=== PATIENT | female | born 1945 | race Caucasian/White ===

== ENCOUNTER → 2017-10-19 | Outpatient (CLI) | payer BC ==
[~2017-10-19] MED LIST: AMLO5TAB2 PO; ASPI1TAB57 PO; HYDR-3583 PO; HYDR12.57 PO; LISI-515 PO; MELO15TA20 PO; ROSU1TAB8 PO; WALKER/ADULT/FO1 MIS
== END ==
LOC: CPRE 11:46
PROVIDERS: ATTEND Orthopaedic Surgery Orthopaedic Trauma
DX: Z01.810 Encounter for preprocedural cardiovascular examination (principal)

== ENCOUNTER 2017-10-25 05:15 | Inpatient (IN) | payer BC, MEDICARE ==
[~2017-10-25] VITALS: Ht 165.1 cm; Wt 77.2 kg
[~2017-10-25 05:15] MED LIST changes: -HYDR-3583 PO; -WALKER/ADULT/FO1 MIS
[2017-10-25] MEDS ORDERED: LACTATED RINGER'S 1000 ML IV PRN (05:45)
[2017-10-25] MEDS ORDERED: DEXAMETHASONE SOD PHOS 20 MG/5 ML VIAL IV SCH (05:45)
[2017-10-25] MEDS ORDERED: CHLORHEXIDINE GLUCONATE 2 % 1 PACK (2 CLOTHS) TOPICAL PRN (05:45)
[2017-10-25] MEDS ORDERED: VANCOMYCIN 1000 MG/NS 250 ML (for <70 kg) IV SCH ×2 (05:45)
[2017-10-25] MEDS ORDERED: ceFAZolin 2 GM PREMIX 50 ML IV SCH ×2 (05:45→09:00)
[2017-10-25] MEDS ORDERED: CHLORHEXIDINE GLUCONATE 4% SOLN 120 ML BTL TOPICAL SCH (05:45)
[2017-10-25] MEDS ORDERED: METOPROLOL TARTRATE 25 MG TAB PO PRN (05:45)
[2017-10-25] MEDS ORDERED: POVIDONE IODINE 5% (ANTISEPSIS KIT) 4 APPLICATIONS EACH NARE PRN (05:45)
[2017-10-25] MEDS ORDERED: SODIUM CHLORID 0.9% 500 ML IV PRN (05:45)
[2017-10-25] MEDS ORDERED: GENTAMICIN SULFATE 80 MG/2 ML VIAL ONE ×2 (06:08→06:11)
[2017-10-25] MEDS ORDERED: ACETAMINOPHEN 1000 MG/100 ML 100 ML IV ONE (06:24)
[2017-10-25] MEDS ORDERED: FAMOTIDINE 20 MG/2 ML VIAL ONE (06:25)
[2017-10-25] MEDS ORDERED: MIDAZOLAM HCL 2 MG/2 ML VIAL ONE (06:25)
[2017-10-25] MEDS ORDERED: DEXAMETHASONE SOD PHOS 4 MG/ML VIAL ONE (06:34)
[2017-10-25] MEDS ORDERED: TRANEXAMIC ACID IV SCH (07:00)
[2017-10-25] MEDS ORDERED: SODIUM CHLORIDE 0.9% IV SCH (07:00)
[2017-10-25] MEDS: ACETAMINOPHEN 1000 MG/100 ML 100 ML IV SCH ×2 (07:00→18:14)
[2017-10-25] MEDS ORDERED: EXPAREL PERI-ARTICULAR INJECTION (TOTAL VOL. 60 ML) P-ARTICULR SCH ×2 (07:00)
[2017-10-25] MEDS ORDERED: ASPI1TAB57 PO (07:10)
[2017-10-25] MEDS ORDERED: WALKER/ADULT/FO1 MIS (07:10)
[2017-10-25] MEDS ORDERED: HYDR-3583 PO (07:10)
--- NOTE | 2017-10-25 07:11 | HHI.FF ---
Face to Face Verification Diagnosis: (1) S/P total hip arthroplasty Physical Therapy Gait training Hip: Total hip, Protocol: Right, Progress to weight bearing Right LE Weight Bearing: WB as tolerated Nursing Dressing Changes: Daily dressing change, Coverderm/Primapore I have seen patient Lyndsay Jeong on 10/25/17. My clinical findings support the need for the requested home health care services because: Ltd mobility - disease progression I certify that my clinical findings support that this patient is homebound because: Post-op weakness Elliot Irby/Attorney Lawyer PA Oct 25, 2017 07:11
[2017-10-25] MEDS ORDERED: BUPIVACAINE/EPINEPHRINE 0.25% PF 30 ML VIAL ONE (07:17)
--- NOTE | 2017-10-25 08:38 | PD.OP ---
cc: Uli Griffiths MD Operative Report Date of Surgery: Oct 25, 2017 Preoperative Diagnosis: Severe right hip osteoarthritis Postoperative Diagnosis: Procedure: Right total hip arthroplasty via anterior approach Anesthesia: Gen. Surgeon: Uli Griffiths Header Machine Operator(s): ALIYA Nava PA-C The surgical procedure was assisted by my physician orthotic assistant. My P.A. presence was necessary throughout this case for the manipulation and positioning of the surgical extremity. My P.A. was assisting me throughout the duration of this procedure. The skill set of a physician orthotic assistant was medically necessary to complete this procedure. During the surgical case the surgical services tech was working at the back table and the physician orthotic assistant was directly assisting me. Operation and Findings: PLAN OF ACTIVITY Weight bear as tolerated. DRAINS: 7-mm KRISTA drain. IMPLANTS USED DePuy Corail size 10 collared stem with a size [48] Mabelvale Gription cup, [48/ 32] Altrx poly liner, and a [32+1] ceramic Biolox ceramic head. DETAILS OF PROCEDURE: This patient has a long history of hip pain. Patient was found to have severe osteoarthritis. The patient had radiographic evidence of joint space narrowing with [id number]-rbrr arthritis and osteophytes around the acetabulum as well as the femoral head. There was also some cystic changes. The patient failed conservative treatment with pain medications, anti-inflammatories, physical therapy, assistive devices including a cane, as well as therapeutic injection of the hip. Patient's hip arthritis was limiting his ability to ambulate and perform activities of daily living. The patient wished to proceed with surgery and informed consent was obtained. Operative site was marked. I discussed both posterior approach and anterior approach with the patient and decision was made for anterior approach. Patient was brought to OR and placed on OR table. IV sedation and general anesthesia was administered by anesthesiologist. Patient positioned on a Akila table and was given IV antibiotics. Time-out procedure was performed. The hip and thigh were prepped with alcohol followed by Hibiclens. The thigh was draped in the usual sterile fashion. Clean Air Suite was used for this procedure. The procedure began with a 5-inch incision over the anterolateral thigh. Subcutaneous tissue was dissected with Bovie. The fascia over the tensa fasciae latae was incised. Care was taken to avoid injury to the lateral femoral cutaneous nerve. The tensor muscle was retracted laterally. Sartorius was retracted medially. Retractors were now placed. The reflected head of the rectus is now elevated. A capsulotomy was performed over the anterior head capsule. Sutures were placed to help retract the capsule. At this point the femoral head and neck were identified. With soft tissue protected, oscillating saw was used to make a cut through the femoral neck, the femoral head was now removed. At this point attention was turned to preparation of the acetabulum. The labrum was excised. The acetabulum was sequentially reamed up to size [48]. A Mabelvale cup was now placed. Fluoroscopy was used to aid in identification of appropriate version. Cup was fully impacted and found to have excellent fit. Hole eliminator was now placed. The liner was now impacted into the cup. At this point the hip was externally rotated. A hook was placed around the proximal femur. The capsule was released off the lateral and medial femur. The hip was now extended and adducted. Retractors were placed around the proximal femur to allow for exposure. A box osteotome was used to remove the lateral cortex of the femoral neck. A broach was used to help lateralize the prosthesis. Canal finder was used to create a path down the canal. Next, the canal was sequentially broached up to size [10]. This was found to be an excellent fit. Calcar planer was placed. A standard head was placed, and the hip was reduced. The hip was found to have excellent stability with good range of motion. The leg lengths were measured under fluoroscopy and found to be equal compared to preoperatively. Trial broach was removed. The Corail stem was opened. Stem was fully impacted into the proximal femur in appropriate version. The femoral head was placed. The hip was again reduced. Fluoroscopy confirmed excellent alignment of prosthesis. The wound was thoroughly irrigated and capsule was closed with #1 Vicryl. The fascia over the tensor fasciae muscle was closed with #1 Vicryl, subcutaneous tissue was closed with 3-0 Vicryl and the skin was closed with lucrecia and Dermabond skin closure. The capsule layers, muscle, and subcutaneous tissue were injected with a mixture of saline and bupivicaine. Dressings were applied. The patient was transferred to Recovery Room in stable condition. Uli Griffiths MD Oct 25, 2017 08:38
[2017-10-25] MEDS ORDERED: ONDANSETRON HCL 4 MG/2 ML VIAL IVP PRN (08:45)
[2017-10-25] MEDS ORDERED: ACETAMINOPHEN/HYDROcodone 325 MG/10 MG TAB PO PRN (08:45)
[2017-10-25] MEDS ORDERED: ACETAMINOPHEN/HYDROcodone 325 MG/5 MG TAB PO PRN (08:45)
[2017-10-25] MEDS ORDERED: NALOXONE HCL 0.4 MG/ML AMP IV PUSH PRN (08:45)
[2017-10-25] MEDS ORDERED: MORPHINE SULFATE 4 MG/ML INJ IV PUSH PRN (08:45)
[2017-10-25] MEDS ORDERED: Post-op Orders (for Pharmacy) XX ONE (08:45)
[2017-10-25] MEDS ORDERED: KETOROLAC TROMETHAMINE 30 MG/ML (IVP) VIAL IV PUSH SCH (09:00)
[2017-10-25] MEDS: amLODIPine BESYLATE 5 MG TAB PO SCH (09:00)
[2017-10-25] MEDS ORDERED: ACETAMINOPHEN 1000 MG/100 ML 100 ML IV SCH (09:00)
[2017-10-25] MEDS ORDERED: *morphine SULFATE 4 MG/ML PERIprocedure ONLY ONE ×3 (09:06→10:54)
--- NOTE | 2017-10-25 09:21 | HHI.FF ---
Face to Face Verification Diagnosis: (1) S/P total hip arthroplasty Physical Therapy Gait training, Safety evaluation Right LE Weight Bearing: WB as tolerated Left LE Weight Bearing: WB as tolerated Nursing Additional Instructions Leave dressing in place then remove on day 6. Reapply dry dressing of Primapore. Change Primapore every other day until office visit I have seen patient Lydnsay Jeong on 10/25/17. My clinical findings support the need for the requested home health care services because: Limited ability to care for self I certify that my clinical findings support that this patient is homebound because: Post-op weakness Chuck Arambula Jr. Oct 25, 2017 09:21
[2017-10-25] MEDS: LACTATED RINGER'S 1000 ML INJ 1,000 ML IV SCH (09:30)
[2017-10-25] MEDS: HYDROCHLOROTHIAZIDE 12.5 MG CAP PO SCH (10:00)
[2017-10-25] MEDS ORDERED: TRANEXAMIC ACID INJ 1,000 MG in SODIUM CHLORIDE 0.9% INJ 100 ML IV SCH (10:00)
[2017-10-25] MEDS ORDERED: DO NOT ADM ANY ANTICOAGULANT DRUGS PRN (10:00)
--- NOTE | 2017-10-25 10:08 | RADRPT ---
EXAM DATE/TIME: 10/25/2017 09:12 [facility] COMPARISON: No previous studies available for comparison. INDICATIONS : Post op right hip surgery. MEDICAL HISTORY : None. SURGICAL HISTORY : None. ENCOUNTER: Initial ACUITY: 1 day PAIN SCORE: 5/10 LOCATION: Right Hip and pelvis. FINDINGS: Right total hip arthroplasty is present. Hardware is intact. Alignment is anatomic. The adjacent pelv is is unremarkable. Contralateral left hip is notable for mild degenerative arthritic change. CONCLUSION: Satisfactory appearance post right TAWNY Karl Spears MD on October 25, 2017 at 10:06 Board Certified Radiologist. This report was verified electronically.
--- NOTE | 2017-10-25 11:05 | RADRPT ---
EXAM DATE/TIME: 10/25/2017 07:14 [facility] COMPARISON: No previous studies available for comparison. INDICATIONS : Right total hip arthroplasty. MEDICAL HISTORY : None. SURGICAL HISTORY : None. ENCOUNTER: Initial ACUITY: 1 day PAIN SCORE: Non-responsive. LOCATION: Right hip FINDINGS: A two view examination of the right hip was performed. Intraoperative films demonstrate a total hip a rthroplasty without complication CONCLUSION: Total hip arthroplasty without complication. Jaziel Casanova MD on October 25, 2017 at 11:02 Board Certified Radiologist. This report was verified electronically.
[2017-10-25] MEDS: ASPIRIN 81 MG CHEW TAB CHEW SCH ×2 (11:30→21:18)
[2017-10-25] MEDS: LISINOPRIL 20 MG TAB PO SCH (11:45)
[2017-10-25] MEDS: CELECOXIB 200 MG CAP PO SCH ×2 (11:45→21:18)
[2017-10-25] MEDS ORDERED: KETOROLAC TROMETHAMINE 30 MG/ML (IVP) VIAL ONE (11:46)
[2017-10-25] MEDS ORDERED: ROCURONIUM INJ 50 MG/5 ML SYRINGE IV PUSH ONE (12:00)
[2017-10-25] MEDS ORDERED: PROPOFOL 200 MG/20 ML AMP IV ONE (12:00)
[2017-10-25] MEDS ORDERED: DEXAMETHASONE SOD PHOS 4 MG/ML VIAL IV ONE (12:00)
[2017-10-25] MEDS ORDERED: GLYCOPYRROLATE 1 MG/5 ML SYRINGE IV PUSH ONE (12:00)
[2017-10-25] MEDS ORDERED: LACTATED RINGER'S 1000 ML INJ 1,000 ML IV ONE (12:00)
[2017-10-25] MEDS ORDERED: NEOSTIGMINE 5 MG/5 ML SYRINGE IV PUSH ONE (12:00)
[2017-10-25] MEDS ORDERED: ePHEDrine/NS 25 MG/5 ML SYRINGE IV ONE (12:00)
[2017-10-25] MEDS ORDERED: ONDANSETRON HCL 4 MG/2 ML VIAL IV ONE (12:00)
[2017-10-25] MEDS ORDERED: LIDOCAINE HCL 1% PF 5 ML SYRINGE OTHER ONE (12:00)
[2017-10-25] MEDS: ceFAZolin 2 GM PREMIX 50 ML IV SCH ×2 (12:40→18:14)
[2017-10-25 16:00] VITALS: BP 115/52; PULSE 58; RESP 18; TEMP 96.1; O2SAT 94
[2017-10-25] MEDS: VANCOMYCIN INJ 1,000 MG in SODIUM CHLOR 0.9% 250 ML INJ 250 ML IV SCH (18:14)
[2017-10-25 21:00] VITALS: BP 129/60; PULSE 74; RESP 17; TEMP 97.2; O2SAT 97
[2017-10-25] MEDS ORDERED: ATORVASTATIN 40 MG TAB PO SCH (21:00)
[2017-10-25] MEDS: ACETAMINOPHEN/HYDROcodone 325 MG/7.5 MG TAB PO PRN (21:19)
[2017-10-26] MEDS: ACETAMINOPHEN/HYDROcodone 325 MG/7.5 MG TAB PO PRN ×2 (00:46→09:02)
[2017-10-26] MEDS: ceFAZolin 2 GM PREMIX 50 ML IV SCH (00:46)
[2017-10-26 01:05] VITALS: BP 113/56; PULSE 78; RESP 16; TEMP 97.2; O2SAT 96
[2017-10-26 04:50] VITALS: BP 114/56; PULSE 69; RESP 17; TEMP 97.5; O2SAT 96
[2017-10-26] MEDS: ACETAMINOPHEN 1000 MG/100 ML 100 ML IV SCH (05:38)
[2017-10-26] MEDS: VANCOMYCIN INJ 1,000 MG in SODIUM CHLOR 0.9% 250 ML INJ 250 ML IV SCH (05:38)
[2017-10-26 06:12] LABS: HEMATOCRIT 31.7 % (35.0-46.0); HEMOGLOBIN 10.8 GM/DL (11.6-15.3)
[2017-10-26 08:00] VITALS: BP 124/58; PULSE 79; RESP 18; TEMP 97.1; O2SAT 94
[2017-10-26] MEDS: LACTATED RINGER'S 1000 ML INJ 1,000 ML IV SCH (08:32)
[2017-10-26] MEDS: LISINOPRIL 20 MG TAB PO SCH (08:55)
[2017-10-26] MEDS: ASPIRIN 81 MG CHEW TAB CHEW SCH (08:55)
[2017-10-26] MEDS: amLODIPine BESYLATE 5 MG TAB PO SCH (08:55)
[2017-10-26] MEDS: HYDROCHLOROTHIAZIDE 12.5 MG CAP PO SCH (08:55)
[2017-10-26] MEDS: CELECOXIB 200 MG CAP PO SCH (08:55)
--- NOTE | 2017-10-26 11:33 | PD.ORT.PN ---
Subjective Subjective Remarks Doing well and progressing with physical therapy Objective Vitals Vital Signs Date Time Temp Pulse Resp B/P (MAP) Pulse Ox O2 Delivery O2 Flow Rate FiO2 10/26/17 08:15 Room Air 10/26/17 08:00 97.1 79 18 124/58 (80) 94 10/26/17 05:56 18 10/26/17 04:50 97.5 69 17 114/56 (75) 96 10/26/17 01:46 18 10/26/17 01:05 97.2 78 16 113/56 (75) 96 10/25/17 22:57 Room Air 10/25/17 22:38 21 10/25/17 21:00 97.2 74 17 129/60 (83) 97 10/25/17 16:00 96.1 58 18 115/52 (73) 94 10/25/17 12:35 97.7 86 19 128/62 (84) 96 Nasal Cannula 2 10/25/17 11:45 76 20 154/65 (94) 95 Nasal Cannula 2 I/O 10/25/17 10/25/17 10/25/17 10/26/17 10/26/17 10/26/17 07:00 15:00 23:00 07:00 15:00 23:00 Intake Total 1518 ml 640 ml 50 ml 480 ml Output Total 200 ml Balance 1318 ml 640 ml 50 ml 480 ml Intake Oral 240 ml 240 ml 480 ml IV Total 1278 ml 400 ml 50 ml Output Estimated Blood Loss 200 ml # Voids 1 2 4 # Bowel Movements 0 0 Result Diagram: 10/26/17 0535 Imaging Last 72 hours Impressions Hip and Pelvis X-Ray 10/25/17 0832 Signed Impressions: Service Date/Time: October 09:12 - CONCLUSION: Satisfactory appearance post right TAWNY Karl Spears MD Hip X-Ray 10/25/17 0000 Signed Impressions: Service Date/Time: October 07:14 - CONCLUSION: Total hip arthroplasty without complication. Jaziel Casanova MD Objective Remarks Right lower extremity: Clean dry dressings intact. Mild swelling. Distally intact sensation be The refills. She has active dorsiflexion and plantarflexion of foot Assessment & Plan Assessment and Plan Right total hip arthroplasty anterior approach POD 1 Maintain dressings - discontinue dressing over incision on POD 6 then begin dressing with Primapore only every other day Physical therapy weightbearing as tolerated 81 mg of aspirin Discharge to home today with home health care Follow-up with Dr. Griffiths or PA in 2 weeks Chuck Arambula Jr. Oct 26, 2017 11:33
[2017-10-26] MEDS ORDERED: DOCUSATE SODIUM 100 MG CAP PO SCH (21:00)
== END 2017-10-26 11:41 | disposition home health service (06) | DRG 470 ==
LOC: HSDI 05:15 → EDUNIT# 07:00 → N06A 13:01
PROVIDERS: ADMIT Orthopaedic Surgery Orthopaedic Trauma; ATTEND Orthopaedic Surgery Orthopaedic Trauma
PROC: 0SR904A Replacement of Right Hip Joint with Ceramic on Polyethylene Synthetic Substitute, Uncemented, Open Approach (ICD-10-PCS; principal; 2017-10-25 06:43)
DX: M16.11 Unilateral primary osteoarthritis, right hip (principal); I10 Essential (primary) hypertension; E78.5 Hyperlipidemia, unspecified; Z88.5 Allergy status to narcotic agent; Z87.891 Personal history of nicotine dependence
CPT/HCPCS: 73501; 73502; 76000; 85014; 85018; 86850; 86900; 86901; C1776; C9290; J0131; J0690; J1100; J1580; J1885; J2250; J2270; J2405; J2710; J3010; J3370; J7050; J7120